=== PATIENT | female | born 1975 | race Caucasian/White ===

== ENCOUNTER 2019-09-16 21:05 | Emergency (ER) | payer BC, OTHER ==
[2019-09-16] MEDS ORDERED: diphenhydrAMINE 50 MG/ML SDV IM ONE (21:38)
[2019-09-16] MEDS ORDERED: methylPREDNISolone Sodium Succinate 125 MG/2 ML SDV IM ONE (21:38)
--- NOTE | 2019-09-17 04:50 | EDM.PDOC ---
ED HPI GENERAL MEDICAL PROBLEM - General Chief Complaint: Allergic Reaction Stated Complaint: throat swelling Time Seen by Provider: 09/16/19 21:35 Source of Information: Reports: Patient History Limitations: Reports: No Limitations - History of Present Illness INITIAL COMMENTS - FREE TEXT/NARRATIVE: PtJessy presents to ER with rash that started 3 days ago. She states that it is extremely pruritic. Complains of mild irritation of her throat but denies any difficulty breathing. She states that she has been taking benadryl but this has not been helping. No nausea, vomiting, or diarrhea. No wheezing. She has never had a reaction like this before. She is unable to determine what caused the reaction and denies any new food, medication, soaps, conditions, or detergents. Onset Date: 09/16/19 Associated Symptoms: Reports: Rash - Related Data Allergies Allergy/AdvReac Type Severity Reaction Status Date / Time morphine Allergy Other Verified 09/16/19 21:11 Home Meds: Home Meds Escitalopram [Lexapro] 10 mg PO DAILY 09/16/19 [History] medroxyPROGESTERone Acetate [Depo-Subq Provera 104] 104 mg SQ ASDIRECTED [History] Past Medical History Genitourinary History: Reports: Renal Calculus Social & Family History - Tobacco Use Smoking Status *Q: Never Smoker ED ROS ALLERGIC REACTION - Review of Systems Review Of Systems: See Below Constitutional: Reports: No Symptoms HEENT: Reports: No Symptoms Respiratory: Reports: No Symptoms Cardiovascular: Reports: No Symptoms Endocrine: Reports: No Symptoms GI/Abdominal: Reports: No Symptoms : Reports: No Symptoms Musculoskeletal: Reports: No Symptoms Skin: Reports: Rash Neurological: Reports: No Symptoms Psychiatric: Reports: No Symptoms Hematologic/Lymphatic: Reports: No Symptoms Immunologic: Reports: No Symptoms ED EXAM GENERAL NO PERIP PULSE - Physical Exam Exam: See Below Exam Limited By: No Limitations General Appearance: Alert, WD/WN, No Apparent Distress Eye Exam: Bilateral Eye: EOMI, Normal Fundi, Normal Inspection, PERRL Nose: Normal Inspection, Normal Mucosa, No Blood Throat/Mouth: Normal Inspection, Normal Lips, Normal Teeth, Normal Gums, Normal Oropharynx, Normal Voice, No Airway Compromise Head: Atraumatic, Normocephalic Neck: Normal Inspection, Supple, Non-Tender, Full Range of Motion Respiratory/Chest: No Respiratory Distress, Lungs Clear, Normal Breath Sounds, No Accessory Muscle Use, Chest Non-Tender Cardiovascular: Normal Peripheral Pulses, Regular Rate, Rhythm, No Edema, No Gallop, No JVD, No Murmur, No Rub Skin Exam: Warm, Dry, Intact, Normal Color, Erythema, Rash Course - Vital Signs Last Recorded V/S: Last Vital Signs Temp 36.9 C 09/16/19 21:12 Pulse 141 H 09/16/19 21:12 Resp 16 09/16/19 21:12 BP 135/94 H 09/16/19 21:12 Pulse Ox 98 09/16/19 21:12 - Orders/Labs/Meds Meds: Medications Discontinued Medications Generic Name Dose Route Start Last Admin Trade Name Krystle PRN Reason Stop Dose Admin Diphenhydramine HCl 50 mg 09/16/19 21:38 09/16/19 21:49 Benadryl IM 09/16/19 21:39 50 mg ONETIME ONE Administration Methylprednisolone Sodium Succinate 125 mg 09/16/19 21:38 09/16/19 21:49 Solu-Medrol IM 09/16/19 21:39 125 mg ONETIME ONE Administration Departure - Departure Time of Disposition: 21:53 Disposition: Home, Self-Care 01 Clinical Impression: Allergic reaction - Discharge Information Instructions: Allergies, Adult, [id number], Prednisone tablets Referrals: PCP,Not In Area [Primary Care Provider] - Forms: ED Department Discharge Additional Instructions: Prednisone 40mg once daily for 10 days diphenhydramine 50mg by mouth every 4-6 hours as needed for itching It may take over 24 hours for the rash to resolve Food/medication diary to assist you in determining what the possible allergen could be Sepsis Event Note - Evaluation Sepsis Screening Result: No Definite Risk - Focused Exam Vital Signs: Vital Signs Temp Pulse Resp BP Pulse Ox 09/16/19 21:12 36.9 C 141 H 16 135/94 H 98 Date Exam was Performed: 09/17/19 Time Exam was Performed: 04:44 - Assessment/Plan Plan: Prednisone 40mg once daily for 10 days diphenhydramine 50mg by mouth every 4-6 hours as needed for itching It may take over 24 hours for the rash to resolve Food/medication diary to assist you in determining what the possible allergen could be
== END 2019-09-16 21:53 | disposition home or self-care (01) ==
LOC: VM.ED 21:05
DX: T78.40XA Allergy, unspecified, initial encounter (principal); Z88.5 Allergy status to narcotic agent; Z79.899 Other long term (current) drug therapy
CPT/HCPCS: 96372; 99282; J1200; J2930

== ENCOUNTER 2019-11-11 21:05 | Emergency (ER) | payer OTHER ==
[2019-11-11] MEDS ORDERED: LORazepam 2 MG/ML SDV IM ONE (21:27)
[2019-11-11] MEDS ORDERED: Ondansetron 4 MG Tab.DIS PO ONE (21:50)
[2019-11-11] MEDS ORDERED: Lidocaine 1% 30 ML SDV INJECT ONE (21:56)
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
[2019-11-12] MEDS: Take Home: LORazepam 0.5 MG Tab, 2 Tab Pack PO ONE (00:15)
[2019-11-12] MEDS ORDERED: Take Home: Ondansetron 4 MG Tab.DIS, 2 Tab Pack PO ONE (00:22)
--- NOTE | 2019-11-12 08:58 | CR ---
[id number] RAD/RAD Chest PA or AP 1V EXAM: SINGLE VIEW CHEST. INDICATION: SHORTNESS OF BREATH COMPARISON: NO PREVIOUS SIMILAR EXAM IS AVAILABLE FINDINGS: The lungs are clear The cardiac silhouette is mildly prominent There is no pneumothorax IMPRESSION: NO PNEUMONIA, EDEMA, OR PNEUMOTHORAX Anuj Barone MD 11/12/19 0857 Thank you for allowing us to participate in the care of your patient.
== END 2019-11-12 00:25 | disposition home or self-care (01) ==
LOC: VM.ED 21:05
DX: S91.121A Laceration with foreign body of right great toe without damage to nail, initial encounter (principal); F41.9 Anxiety disorder, unspecified; Z79.899 Other long term (current) drug therapy; Z88.5 Allergy status to narcotic agent; X00.0XXA Exposure to flames in uncontrolled fire in building or structure, initial encounter; W26.8XXA Contact with other sharp object(s), not elsewhere classified, initial encounter; Y92.009 Unspecified place in unspecified non-institutional (private) residence as the place of occurrence of the external cause
CPT/HCPCS: 12001; 71045; 94760; 96372; 99283; A9270; J2001; J2060